=== PATIENT | female | born 2000 | race Caucasian/White ===

== ENCOUNTER 2020-10-07 14:36 | Emergency (ER) | payer MEDICAID ==
[~2020-10-07] VITALS: Ht 157.5 cm; Wt 80.6 kg
[2020-10-07 14:39] VITALS: BP 136/73
[2020-10-07] MEDS ORDERED: CIPROFLOXACIN/HYDROCORTISONE EAR SUSP 0.2-1%, 10ML LEFT EAR ONE (16:00)
[2020-10-07] MEDS ORDERED: ACETAMINOPHEN 325 MG TABLET PO ONE (16:30)
[2020-10-07] MEDS ORDERED: ACETAMINOPHEN 325 MG TABLET ONE (16:57)
--- NOTE | 2020-10-07 17:02 | NUR ---
Patient/Caregiver given discharge instructions and they have confirmed that they understand the instructions. Patient ambulatory with steady gait.
== END 2020-10-07 17:03 | disposition home or self-care (01) ==
LOC: ED 16:18
DX: H60.502 Unspecified acute noninfective otitis externa, left ear (principal); R00.0 Tachycardia, unspecified
CPT/HCPCS: 99282; 99283

== ENCOUNTER 2020-11-24 22:08 | Emergency (ER) | payer MEDICAID ==
[~2020-11-24] VITALS: Ht 157.5 cm; Wt 74.9 kg
--- NOTE | 2020-11-24 22:37 | NUR ---
CC OF SPITTING UP BLOOD X 2 DAYS WITH SOME SOB. RECENT TRAVEL ON [employer] TO [place] AND BACK, ADMITS TO SMOKING AND STATES SHE USES CONTROL.
--- NOTE | 2020-11-24 22:59 | NUR ---
COVID SWAB COLLECTED AND WALKED TO LAB
[2020-11-24 23:07] LABS: BASOPHILS % (AUTO) 1 % (0-1); EOSINOPHILS % (AUTO) 1 % (1-7); LYMPHOCYTES % (AUTO) 38 % (22-44); MEAN CORPUSCULAR HEMOGLOBIN 29.6 pg (27.0-34.8); MEAN CORPUSCULAR HGB CONC 34.3 g/dL (32.4-35.8); MONOCYTES % (AUTO) 10 % (2-9); NEUTROPHILS % (AUTO) 50 % (42-75); PLATELET COUNT 239 x10^3/uL (130-400); RED BLOOD COUNT 4.64 x10^6/uL (3.82-5.3); RED CELL DISTRIBUTION WIDTH 13.8 % (9.6-15.2)
[2020-11-24 23:08] LABS: MD NO
[2020-11-24 23:15] LABS: ALBUMIN 3.9 g/dL (3.4-5.0); ANION GAP 5 mmol/L (5-15); CALCIUM 8.2 mg/dL (8.5-10.1); CHLORIDE 110 mmol/L (98-107); CREATININE 0.87 mg/dL (0.55-1.02)
[2020-11-25] VITALS: BP 133/74
== END 2020-11-25 00:35 | disposition home or self-care (01) ==
LOC: ED 22:24
DX: R04.2 Hemoptysis (principal); B34.9 Viral infection, unspecified; Z20.822 Contact with and (suspected) exposure to COVID-19; R07.9 Chest pain, unspecified; F17.290 Nicotine dependence, other tobacco product, uncomplicated
CPT/HCPCS: 36415; 71045; 80048; 82040; 84703; 85025; 85379; 87635; 99284; 99406